=== PATIENT | female | born 1930 | race Caucasian/White ===

== ENCOUNTER 2018-01-16 08:17 | Observation (INO) | payer MEDICARE, OTHER ==
[2018-01-16 09:07] LABS: ABS Basophils 0.1 10^3/ul (0-0.2); ABS Eosinophils 0.1 10^3/ul (0-0.6); ABS Lymphocytes 2.2 10^3/ul (1.0-4.8); ABS Monocytes 0.6 10^3/ul (0-0.8); ABS Neutrophils 2.5 10^3/ul (1.5-7.7); ABS Nucleated RBC 0 10^3/ul; Eosinophil % 2.1 % (0-6); Hematocrit 46 % (35-47); Hemoglobin 15.3 g/dl (12.0-16.0); Lymphocyte % 39.9 % (25-47); Mean Corpuscular HGB Conc 34 g/dl (31-36); Mean Corpuscular Hemoglobin 31 pg (27-31); Mean Corpuscular Volume 92 fL (80-97); Mean Platelet Volume 8 um3 (7.4-10.4); Nucleated Red Blood Cells % 0.3; Platelet Count 251 10^3/ul (150-450); Red Blood Count 4.96 10^6/ul (4.0-5.4); Red Cell Distribution Width 15 % (10.5-15); White Blood Count 5.4 10^3/ul (3.5-10.8)
[2018-01-16 09:31] LABS: INR 0.85 (0.77-1.02)
--- NOTE | 2018-01-16 09:43 | RAD ---
Indication: Weakness and chest pain starting this morning. Previous myocardial infarction and stenting. Comparison: No relevant prior exams available on the [facility] PACS for comparison. Technique: Upright AP 0915 hours Report: Elevated lung volumes and both diffuse mild prominence of the interstitial markings and patchy rarefaction of the mid to upper lung zone interstitial markings. Costochondral calcifications noted. No focal pulmonary lesion, compelling alveolar consolidation, pleural effusion, pneumothorax. The heart, pulmonary vasculature, and mediastinal contours are unremarkable. IMPRESSION: Stigmata of obstructive lung disease. No acute pulmonary or cardiac process evident.
[2018-01-16 10:28] LABS: Urine Appearance Cloudy; Urine Blood Negative (Negative); Urine Color Amber; Urine Ketones Negative (Negative); Urine Protein 1+(30 mg/dL) (Negative); Urine Specific Gravity 1.019 (1.010-1.030); Urine Urobilinogen Positive (Negative)
[2018-01-16] MEDS ORDERED: Nitroglycerin TAB 0.4 MG* 0.4 MG TAB SL PRN (12:23)
[2018-01-16] MEDS ORDERED: Lisinopril TAB* 10 MG PO SCH (13:00)
[2018-01-16] MEDS ORDERED: Metoprolol Succinate XL TAB* 25 MG PO SCH (13:00)
[2018-01-16] MEDS ORDERED: Isosorbide Mononitrate ER TAB* 60 MG PO SCH (13:00)
[2018-01-16] MEDS ORDERED: Pantoprazole IV* 40 MG IV SCH (13:00)
[2018-01-16] MEDS: Nitrofurantoin Macrocrystals* 50 MG CAP PO SCH ×2 (15:56→20:28)
[2018-01-16] MEDS ORDERED: Atorvastatin* 20 MG TAB PO SCH (18:00)
[2018-01-16] MEDS ORDERED: EXEMESTANE 25 MG PO SCH (18:00)
--- NOTE | 2018-01-16 18:09 | HP ---
CC: Dr. Ansley Reyes; Dr. Ti Hahn at [place]; Dr. Beltrán* ADMISSION HISTORY AND PHYSICAL/DISCHARGE SUMMARY: DATE OF ADMISSION: 01/16/18 DATE OF DISCHARGE: 01/16/18 PRIMARY ASSISTANT PROFESSOR OF PHILOSOPHY: Dr. Ti Hahn, at [place]. ATTENDING FOR TODAY: David Beltrán MD* (dictated by Abhay Lake NP ). CHIEF COMPLAINT: Chest pain. HISTORY OF PRESENT ILLNESS: This is an 87-year-old female patient who comes to the emergency department by EMS with a complaint of midsternal chest pressure. The patient states she woke up in the morning she was feeling fine, and about half an hour later she started experiencing some chest pain. She took 1 nitro with no resolution. Son then called emergency medical services, she received a second nitro and then aspirin in the ambulance on the way, and currently now in the ER is chest pain free. PAST MEDICAL HISTORY: Includes myocardial infarction in November of this year, hypertension, COPD, history of breast cancer, history of basal cell carcinoma of the face, and GERD. PAST SURGICAL HISTORY: Significant for cardiac catheterization, November of this year. ALLERGIES: No known drug allergies. FAMILY HISTORY: Noncontributory. SOCIAL HISTORY: The patient denies any alcohol use. Denies any illicit drug use, is an every day tobacco smoker, reports for many, many years, is unsure how years she has been smoking, although she has been smoking less, secondary to living with her son and she is not allowed to smoke in the house. PHYSICAL EXAMINATION GENERAL: The patient is awake and alert, a bit frail appearing, in no acute distress. VITAL SIGNS: Currently, blood pressure 155/73, heart rate 85, respiratory rate 20, oxygen saturation 94% to 96% on room air, temperature is 99.0. HEENT: The patient is atraumatic, normocephalic. She is PERRLA with nonicteric sclerae. She has several growths of her basal cell carcinoma, one at the tip of the nose, also on the left cheek. The one on the tip of the nose is blackened and excoriated, one on the left cheek appears to be more flesh colored. No bleeding or exudate or drainage are noted from either of these lesions. Her dentition is poor. Her oral mucosa is dry. NECK: Supple, nontender. No JVD noted. No carotid bruits auscultated. LUNGS: Clear bilaterally at the apices to auscultation. Generally diminished at the bases. No wheezing, rhonchi or rales appreciated. CARDIOVASCULAR: S1, S2 are present. She has sometimes irregular, having some PAC's on the monitor. Otherwise, rhythm is regular sinus on telemetry with no acute ectopy and no acute ST segment changes. ABDOMEN: Soft, nontender, nondistended. No organomegaly noted. She has positive bowel sounds in all 4 quadrants. : Deferred. MUSCULOSKELETAL: There is no clubbing and no cyanosis. No edema. She has +2 distal pulses palpable. Normally ambulatory with a steady gait. NEUROLOGIC: She is grossly intact. Per the son, she does have periods of confusion; however, she is appropriate at this time, alert and oriented to person, place and time. PSYCHIATRIC: She is cooperative and appropriate. LABORATORY DATA: CBC: WBC 5.4, RBC 4.96, hemoglobin 15.3, hematocrit 46, platelets 251,000. Sodium 131, potassium 4.0, chloride 95, CO2 of 29, BUN 11, creatinine 0.59, GFR is 96, glucose 137, lactic acid 1.7, calcium 10, bilirubin 2.10, AST 92, ALT 57, alk phos 453. CK-MB is 3.1, total creatine kinase 26. Troponin is negative at 0.02. Protein 8.0, albumin 3.4, globulin 4.6. TSH is 2.45. Urinalysis shows parth cloudy urine. Urine; pH of 5.0, specific gravity of 1.019, 1+ proteins, positive for urobilinogen, negative for leukocyte esterase, negative for nitrites, trace WBC, 1+ RBC's, present squamous epithelial cells, 1+ bacteria and present hyaline casts. Negative for glucose. IMAGING: Her chest x-ray as interpreted by the radiologist, reveals stigmata of obstructive lung disease with no acute pulmonary or cardiopulmonary processes evident. EKG; first EKG which was at 9 o'clock this morning shows sinus tach with left ventricular hypertrophy, anterior infarct with Q-wave noted in leads 2, 3 and aVF. Repeat EKG at 10:21 shows no changes from the previous one at 9 o'clock this morning. IMPRESSION: This is an 87-year-old female patient with a strong cardiac history having just been on cardiac cath in November with stenting and also with comorbid hypertension, history of breast cancer, skin cancer, and chronic obstructive pulmonary disease. After a lengthy discussion with the ER physician and the patient's son, per the patient's son, the patient had 1 stent after her infarct in November. He was told by her injection molding machine offbearer in [place] that she was not a candidate for bypass surgery, even though she had multivessel disease. She would not be optimized to have that surgery. As such, conservative medical management was opted for. Since patient has come to [place] from [place], she has been seeing Dr. Hahn at [place], trying to get through to Dr. Hahn to see if he wishes to have the patient admitted, however, her chest pain is gone and having just had full cardiac workup in November, I do not feel it is necessary for advanced imaging or testing. However , we will trend 2 more troponins. If they are negative, then the patient will be discharged to home with followup with Dr. Hahn. Having said that, if Dr. Hahn calls me back and wishes for additional testing or other interventions, then we will respect that and keep the patient in for additional testing and diagnosis. However, at this time, we will continue her home medications which include: 1. Metoprolol succinate XL 25 mg daily. 2. Lisinopril 20 mg daily. 3. Isosorbide mononitrate 60 mg daily. 4. Plavix 75 mg daily. 5. Lipitor 20 mg in the evening. 6. Low dose aspirin 81 mg a day. 7. Aromasin 25 mg in the p.m. In terms of her elevated liver function, this is likely due to her Aromasin as well as her elevated bilirubin, so this is something that should be followed up with on an outpatient basis. Again, for her chest pain, we will trend her troponins, administer nitro as needed. Repeat an EKG as needed. For her hypertension, continue her lisinopril and her metoprolol. For her previous history of myocardial infarction, we will continue her Plavix and also her isosorbide mononitrate and her baby aspirin. I have also placed her on Protonix IV. The patient does have strong history of gastroesophageal reflux disease, which may have also been a confounding component here that will be given IV. The rest of the patient's course will be determined by further diagnostics, laboratories, and any other input from other providers is warranted during this admission. We will continue to watch this patient closely. Of significant note, patient is a full code. For DVT prophylaxis, we will give her heparin q.8 hours. This plan of care has been discussed with Dr. Beltrán, my attending for today, and he is in full agreement with this plan. ABHAY LAKE NP ADDENDUM TO HISTORY AND PHYSICAL/DISCHARGE SUMMARY: DATE OF ADMISSION: 01/16/2018. DATE OF DISCHARGE: 01/16/2018. UPDATE: The patient's injection molding machine offbearer, Dr. Hahn, reached out to me and we had a discussion regarding the patient's prognosis and hospitalization. Dr. Hahn felt it was prudent to let the patient to be discharged today as her troponins were negative at 0.04, 0.03, and 0.03. The patient is chest pain free. Blood pressure and vitals are stable. Currently, her blood pressure is 121/77, heart rate 94, respiratory rate 18, satting at 95% on room air, temperature 98.1. The patient received her medications for the day. As instructed by Dr. Hahn, I increased her Imdur to 120 mg. I had a long conversation with her son regarding the change in the dosage. She was currently taking 60, so she will take 60 two times a day now and follow up with Dr. Hahn in the office this week. The patient was discharged in stable condition. All questions were answered. Her son was at the bedside. Also for the approval of the plan of care and discharge, the son also states his understanding of the followups and changes in medications at the time of discharge. ABHAY LAKE NP [id number]/CPS #: [id number]/CPS #: [id number] SAMY
[2018-01-16 20:47] VITALS: BP 136/54
[2018-01-16] MEDS ORDERED: Senna TAB PO SCH (21:00)
--- NOTE | 2018-01-17 08:38 | ED ---
Saulo [place] Angela, scribed for Ziyad Pulliam MD on 01/16/18 at 0901 . HPI Chest Pain - HPI Summary HPI Summary: This pt is a 87 y/o female presenting to [facility] via EMS from home c/o chest pressure today. Pt reports she woke up from sleep this morning with chest pressure. Denies nausea, vomiting, SOB, diaphoresis. She took 1 nitroglycerin at home with no relief, so her son called the ambulance. EMS administered 1 nitroglycerin and aspirin ADULT SPECIALIST. Pt states she has recently moved to [place] from [facility]. PMHx includes ND (2017). - History of Current Complaint Chief Complaint: EDChestPainROMI Hx Obtained From: Patient Onset/Duration: Started Hours Ago, Still Present Timing: Lasting Hours Current Severity: Mild Pain Intensity: 3 Pain Scale Used: 0-10 Numeric Chest Pain Location: Diffuse Chest Pain Radiates: No Character: Pressure/Squeezing - Pressure Aggravating Factor(s): Nothing Alleviating Factor(s): Nothing Associated Signs and Symptoms: Positive: Chest Pain. Negative: Shortness of Breath, Diaphoresis, Nausea, Vomiting - Allergy/Home Medications Allergies/Adverse Reactions: Allergies Allergy/AdvReac Type Severity Reaction Status Date / Time No Known Allergies Allergy Verified 01/16/18 08:20 Home Medications: Home Medications Aspirin EC Low Dose* [Ecotrin EC Low Dose 81 MG*] 81 mg PO QAM 01/16/18 [ History Confirmed 01/16/18] Atorvastatin* [Lipitor 20 MG*] 20 mg PO QPM 01/16/18 [History Confirmed 01/16/18 ] Clopidogrel TAB* [Plavix TAB*] 75 mg PO QAM 01/16/18 [History Confirmed 01/16/18 ] Exemestane(NF) [Aromasin(NF)] 25 mg PO QPM 01/16/18 [History Confirmed 01/16/18] Lisinopril TAB* [Prinivil TAB 10 MG*] 20 mg PO QAM 01/16/18 [History Confirmed 01/16/18] Metoprolol Succinate XL TAB* [Toprol XL TAB*] 25 mg PO QAM 01/16/18 [History Confirmed 01/16/18] Nitroglycerin TAB 0.4 MG* 0.4 mg SL Q5M PRN 01/16/18 [History Confirmed 01/16/18 ] Ranitidine TAB (NF) [Zantac TAB (NF)] 150 mg PO QPM 01/16/18 [History Confirmed 01/16/18] Senna/Docusate (NF) [Sennokot-S(NF)] 1 tab PO QAM 01/16/18 [History Confirmed ] PMH/Surg Hx/FS Hx/Imm Hx Endocrine/Hematology History: Denies: Hx Diabetes Cardiovascular History: Reports: Hx Myocardial Infarction - 2017 Infectious Disease History: No Infectious Disease History: Denies: Traveled Outside the [place] in Last 30 Days - Family History Known Family History: Negative: Cardiac Disease - Social History Alcohol Use: None Substance Use Type: Reports: None Smoking Status (MU): Light Every Day Tobacco Smoker Review of Systems Negative: Fever, Chills, Skin Diaphoresis Positive: Chest Pain Negative: Shortness Of Breath Negative: Vomiting, Nausea All Other Systems Reviewed And Are Negative: Yes Physical Exam - Summary Physical Exam Summary: VITAL SIGNS: Reviewed. GENERAL: Patient is an elderly and fragile female who is lying comfortable in the stretcher. Patient is in no acute distress. HEAD AND FACE: No signs of trauma. No ecchymosis, hematomas or skull depressions. No sinus tenderness. EYES: PERRLA, EOMI x 2, No injected conjunctiva, no nystagmus. EARS: Hearing grossly intact. Ear canals and tympanic membranes are within normal limits. MOUTH: Oropharynx within normal limits. NECK: Supple, trachea is midline, no adenopathy, no JVD, no carotid bruit, no c- spine tenderness, neck with full ROM. CHEST: Symmetric, no tenderness at palpation LUNGS: Clear to auscultation bilaterally. No wheezing or crackles. CVS: Regular rate and rhythm, S1 and S2 present, no murmurs or gallops appreciated. ABDOMEN: Soft, non-tender. No signs of distention. No rebound no guarding, and no masses palpated. Bowel sounds are normal. EXTREMITIES: FROM in all major joints, no edema, no cyanosis or clubbing. NEURO: Alert and oriented x 3. No acute neurological deficits. Speech is normal and follows commands. SKIN: Dry and warm. Black mole on the nose. Triage Information Reviewed: Yes Vital Signs On Initial Exam: Initial Vitals Temp Pulse Resp BP Pulse Ox 99.0 F 102 20 159/102 98 01/16/18 08:18 01/16/18 08:18 01/16/18 08:18 01/16/18 08:18 01/16/18 08:18 Vital Signs Reviewed: Yes Diagnostics - Vital Signs Vital Signs Temp Pulse Resp BP Pulse Ox 01/16/18 08:25 102 19 95 01/16/18 08:18 99.0 F 102 20 159/102 98 - Laboratory Result Diagrams: 01/16/18 08:19 01/16/18 08:19 Lab Statement: Any lab studies that have been ordered have been reviewed, and results considered in the medical decision making process. - Radiology Chest XR Xray Interpretation: Positive (See Comments) - IMPRESSION: Stigmata of obstructive lung disease. No acute pulmonary or cardiac process evident. Dr. Pulliam has reviewed this radiology report. Radiology Interpretation Completed By: Radiologist - EKG 08:18 Cardiac Rate: Tachycardia EKG Rhythm: Sinus Tachycardia - at 100 bpm EKG Interpretation: No ST elevations. ST depressions V2-V5. Q waves in II, III, aVF. Chest Pain Course/Dx - Course Assessment/Plan: This pt is a 87 y/o female presenting to [facility] via EMS from home c/o chest pressure today. Pt reports she woke up from sleep this morning with chest pressure. Denies nausea, vomiting, SOB, diaphoresis. She took 1 nitroglycerin at home with no relief, so her son called the ambulance. EMS administered 1 nitroglycerin and aspirin ADULT SPECIALIST. Pt states she has recently moved to [place] from [facility]. PMHx includes ND (2017). Test results without any significant abnormalities except for sodium of 131, AST and ALT are elevated. Urinalysis is contaminated. EKG shows no ST elevation, however her chest pain was resolved with nitroglycerin and aspirin. Because of the pts comorbidities I discussed the case with Dr. Beltrán, hospitalist, who accepted the pt for admission for chest pain to rule out an acute coronary syndrome. Pt is hemodynamically stable, alert and oriented x3. - Diagnoses Provider Diagnoses: Chest pain, rule out ACS - Provider Notifications Discussed Care Of Patient With: David Beltrán Time Discussed With Above Provider: 10:18 Instructed by Provider To: Other - I discussed pt care with Dr. Beltrán, hospitalist, who has agreed to admit the pt. Discharge - Discharge Plan Condition: Stable Disposition: ADMITTED TO [facility] The documentation as recorded by the Saulo li Angela accurately reflects the service I personally performed and the decisions made by , Ziyad Pulliam MD.
[2018-01-17] MEDS ORDERED: Clopidogrel TAB* 75 MG PO SCH (09:00)
[2018-01-17] MEDS ORDERED: Isosorbide Mononitrate ER TAB* 60 MG PO SCH (09:00)
[2018-01-17] MEDS ORDERED: Docusate LIQ* 100 MG/10 ML UDC PO SCH (09:00)
--- NOTE | 2018-01-17 11:42 | HP ---
CC: Dr. Ansley Reyes; Dr. Ti Hahn at [place]; Dr. Beltrán. ADDENDUM TO HISTORY AND PHYSICAL/DISCHARGE SUMMARY: DATE OF ADMISSION: 01/16/2018. DATE OF DISCHARGE: 01/16/2018. UPDATE: The patient's cpr ambulance driver, Dr. Hahn, reached out to me and we had a discussion regardi ng the patient's prognosis and hospitalization. Dr. Hahn felt it was prudent to let the patient to be discharged today as her troponins were negative at 0.04, 0.03, and 0.03. The patient is chest pain free. Blood pressure and vitals are stable. Currently, her blood pressure is 121/77, heart ra te 94, respiratory rate 18, satting at 95% on room air, temperature 98.1. The patient received her m edications for the day. As instructed by Dr. Hahn, I increased her Imdur to 120 mg. I had a [facility] conversation with her son regarding the change in the dosage. She was currently taking 60, so she will take 60 two times a day now and follow up with Dr. Hahn in the office this week. The patient was discharged in stable condition. All questions were answered. Her son was at the bed side. Also for the approval of the plan of care and discharge, the son also states his understanding of the followups and changes in medications at the time of discharge. ABHAY SHARMA NP [id number]/[facility] #: [id number]
== END 2018-01-16 20:45 | disposition home or self-care (01) ==
LOC: ED 08:17 → MEDTELE 12:21
PROVIDERS: ADMIT Internal Medicine; ATTEND Internal Medicine
DX: R07.9 Chest pain, unspecified (principal); F17.210 Nicotine dependence, cigarettes, uncomplicated; I25.2 Old myocardial infarction; Z86.79 Personal history of other diseases of the circulatory system
CPT/HCPCS: 36415; 71045; 80053; 81003; 81015; 82550; 82553; 83605; 84443; 84484; 85025; 85610; 85730; 87086; 93005; A9270-GY; G0378

== ENCOUNTER 2018-07-22 07:27 | Day surgery (SDC) | payer MEDICARE, OTHER ==
[~2018-07-22 07:27] MED LIST: Buffered Lidocaine 0.9% SYRIN* 5 ML/SYR SYRINGE INTRADERM ONE
[2018-07-22] MEDS ORDERED: ceFAZolin 2 GM in NS PREMIX(*) 2 GM/100 ML BAG IVPB ONE (07:45)
[2018-07-22] MEDS ORDERED: Labetalol IV* 5 MG/ML 20 ML VIAL IV PUSH ONE (08:18)
[2018-07-22] MEDS ORDERED: Labetalol IV* 5 MG/ML 20 ML VIAL ONE (08:23)
[2018-07-22] MEDS ORDERED: fentaNYL* 50 MCG/ML 2 ML VIAL (100 MCG VIAL) ONE (08:37)
[2018-07-22] MEDS ORDERED: Propofol* 10 MG/ML 20 ML BTL IV PUSH ONE ×2 (09:09→11:13)
[2018-07-22] MEDS ORDERED: Lidocain 1% EPI 1:100,000 * 30 ML MDV ONE (09:23)
[2018-07-22] MEDS ORDERED: Bupivacaine 0.25% SDV PF* 10 ML VIAL INJ ONE (09:24)
[2018-07-22] MEDS ORDERED: Bupivacaine 0.25% EPI 200,000* 30 ML SDV ONE (09:24)
[2018-07-22] MEDS ORDERED: Midazolam* 1 MG/ML 2 ML VIAL (2 MG) ONE (09:53)
[2018-07-22] MEDS ORDERED: Mineral Oil Sterile, TOPICAL* 25 ML BTL ONE (10:07)
[2018-07-22] MEDS ORDERED: Methylene Blue 0.5 %* 50 MG/10 ML AMP IV ONE (10:07)
[2018-07-22] MEDS ORDERED: Acetaminophen TAB* 325 MG PO PRN (10:14)
[2018-07-22] MEDS ORDERED: Ondansetron INJ* 2 MG/ML VIAL IV PRN (10:14)
[2018-07-22] MEDS ORDERED: oxyCODONE/Acetamin 5/325 MG* TAB PO PRN (10:14)
[2018-07-22] MEDS ORDERED: Ibuprofen TAB* 400 MG PO PRN (10:14)
[2018-07-22] MEDS ORDERED: fentaNYL* 50 MCG/ML 2 ML VIAL (100 MCG VIAL) IV PRN (10:14)
[2018-07-22] MEDS ORDERED: Naloxone* 0.4 MG/ML 1 ML VIAL IV PRN (10:14)
[2018-07-22] MEDS ORDERED: Labetalol IV* 5 MG/ML 20 ML VIAL IV PUSH PRN (10:20)
[2018-07-22] MEDS ORDERED: hydrALAZINE IV* 20 MG/ML VIAL IV SLOW PU PRN (10:22)
[2018-07-22] MEDS ORDERED: Phenylephrine INJ* 10 MG/ML 1 ML VIAL (10 MG) ONE (11:00)
[2018-07-22 13:09] VITALS: BP 117/72
== END 2018-07-22 13:13 | disposition home or self-care (01) ==
LOC: OR 07:27
PROVIDERS: ATTEND Plastic Surgery
DX: C44.311 Basal cell carcinoma of skin of nose (principal); I10 Essential (primary) hypertension; E78.5 Hyperlipidemia, unspecified; I25.10 Atherosclerotic heart disease of native coronary artery without angina pectoris; I71.4 Abdominal aortic aneurysm, without rupture; Z87.891 Personal history of nicotine dependence; K21.9 Gastro-esophageal reflux disease without esophagitis; Z79.01 Long term (current) use of anticoagulants; M19.90 Unspecified osteoarthritis, unspecified site; Z87.440 Personal history of urinary (tract) infections
CPT/HCPCS: 88305; 88331; 88332; A9270-GY; J0690; J2250; J2704; J3010; J3490